=== PATIENT | male | born 1990 | race American Indian/Alaskan Native ===

== ENCOUNTER 2020-11-02 18:22 | Emergency (ER) | payer OTHER ==
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
[2020-11-02] MEDS ORDERED: HYDROcodone/ACETAMINOPHEN 5-325 MG TAB PO ONE (22:10)
[2020-11-02] MEDS ORDERED: ONDANSETRON 4 MG ODT TAB PO ONE (22:10)
[2020-11-02] MEDS ORDERED: ceFAZolin 1 GM VIAL IM ONE (22:10)
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
[2020-11-02] MEDS ORDERED: LIDOCAINE 1%/EPINEPHRINE 1:100,000 VIAL (20 ML) INFILTRATI NR (22:15)
[2020-11-02] MEDS ORDERED: WATER FOR INJ Sterile (PF) 10 ML IM ONE (22:21)
[2020-11-02] MEDS ORDERED: NEOMY 3.5 MG/BACIT 400 UNITS/POLY B 5000 UNITS/GM OINT PACKET TP ONE (23:42)
[2020-11-03 00:08] VITALS: BP 122/65
== END 2020-11-03 00:09 | disposition home or self-care (01) ==
LOC: ED 18:22
DX: S61.431A Puncture wound without foreign body of right hand, initial encounter (principal); S61.412A Laceration without foreign body of left hand, initial encounter; Z79.899 Other long term (current) drug therapy; W34.00XA Accidental discharge from unspecified firearms or gun, initial encounter; Y93.89 Activity, other specified; Y92.89 Other specified places as the place of occurrence of the external cause; Y99.8 Other external cause status
CPT/HCPCS: 12001; 73130; 96372; 99283; A6250; J0690; Q0162